=== PATIENT | female | born 1960 | race Hispanic/Latino ===

== ENCOUNTER 2018-11-01 07:20 | Observation (INO) | payer BC, OTHER ==
--- NOTE | 2018-11-01 07:36 | ED PDOC ---
Arrival/HPI - General Time Seen by Provider: 11/01/18 07:22 Historian: Patient - History of Present Illness Narrative History of Present Illness (Text): 11/01/18 07:32 A 58 year old female, with no significant past medical history, presents to the emergency department with a complaint of right upper abdominal pain. The patient states that the pain began yesterday, but worsened this morning. She reports the pain feels like gas pain. She states that she was seen at another institution where she had an abdominal ultrasound which showed multiple likely stones, no gall bladder wall thickening or pericholecystic fluid. The patient denies fevers, chills, headache, dizziness, chest pain, shortness of breath, dyspnea on exertion, cough, nausea, vomiting, diarrhea, back pain, neck pain, urinary/bowel changes, or any other complaint. PMD: Dr. Meyer Time/Duration: Other (Yesterday) Symptom Onset: Sudden Symptom Course: Unchanged Activities at Onset: Rest, Light Context: Home Past Medical History - Provider Review Nursing Documentation Reviewed: Yes Family/Social History - Physician Review Nursing Documentation Reviewed: Yes Family/Social History: No Known Family HX Allergies/Home Meds Allergies/Adverse Reactions: Allergies No Known Allergies Allergy (Verified 11/01/18 11:55) Home Medications: Home Meds Medication Instructions Recorded Confirmed No Known Home Med 11/01/18 11/01/18 Review of Systems - Physician Review All systems were reviewed & negative as marked: Yes - Review of Systems Constitutional: absent: Fevers Cardiovascular: absent: Chest Pain Physical Exam - Physical Exam Narrative Physical Exam (Text): Constitutional: No acute distress. Head: Normocephalic. Atraumatic. Eyes: PERRL. ENT: Moist mucous membranes. Neck: Supple. Cardiovascular: Regular rate. Chest: No tenderness. Respiratory: Clear to auscultation bilaterally. GI: Soft. Nondistended. Tenderness. No guarding. Back: No CVA tenderness. Musculoskeletal: No tenderness or swelling of extremities. Skin: No rash. Neurologic: Alert, no focal deficit. Vital Signs Reviewed: Yes Temperature: Afebrile Blood Pressure: Hypotensive Pulse: Bradycardic Respiratory Rate: Normal Appearance: Positive for: Well-Appearing, Non-Toxic, Comfortable Pain Distress: None Mental Status: Positive for: Alert and Oriented X 3 Medical Decision Making ED Course and Treatment: 11/01/18 07:38 Impression: A 58 year old female presents to the emergency department with a complaint of worsening right upper abdominal pain. Plan: -- Abdomen/Pelvis CT -- EKG -- Urinalysis -- Urine Culture -- Labs -- Toradol -- Reassess and disposition Prior Visits: Notes and results from previous visits were reviewed. Progress Notes: PROCEDURE: CT Abdomen and Pelvis with contrast Dictator : Jessica Mayes MD Report Date : 11/01/2018 09:44:38 IMPRESSION: Marked gastric wall thickening from the mid to distal stomach, may be related to gastritis. Correlate clinically. Cholelithiasis. Large prominent pelvic vasculature (left greater than right) may reflect pelvic congestion syndrome. 2.4 cm uterine hyperdense mass, likely fibroid. Patient continued to have pain despite IV treatment. Dr. Mcrae will take patient to endoscopy. Dr. Mullins consulted for lap slade should EGD be negative. - Lab Interpretations I have reviewed the lab results: Yes - EKG Interpretation Interpreted by ED Physician: Yes Type: 12 lead EKG - Scribe Statement The provider has reviewed the documentation as recorded by the Scribe Donna Zeng Provider Scribe Attestation: All medical record entries made by the Scribe were at my direction and personally dictated by me. I have reviewed the chart and agree that the record accurately reflects my personal performance of the history, physical exam, medical decision making, and the department course for this patient. I have also personally directed, reviewed, and agree with the discharge instructions and disposition. Disposition/Present on Arrival - Present on Arrival Any Indicators Present on Arrival: No - Disposition Have Diagnosis and Disposition been Completed?: Yes Diagnosis: Biliary colic, Cholelithiasis Disposition: HOSPITALIZED Disposition Time: 09:49 Patient Plan: Observation Condition: FAIR
[2018-11-01 08:21] LABS: BASO # 0.02 K/mm3 (0.0-2.0); BASO % 0.2 % (0.0-3.0); EOS % 0.4 % (1.5-5.0); HEMOGLOBIN 14.1 g/dL (12.0-16.0); LYMPH # 1.2 (1.2-3.4); LYMPH % 14.4 % (22.0-35.0); MEAN CELL VOLUME 90.1 fl (80.0-105.0); MEAN CORPUSCULAR HEMOGLOBIN 30.4 pg (25.0-35.0); MEAN CORPUSCULAR HGB CONC 33.7 g/dl (31.0-37.0); MONO # 0.6 (0.1-0.6); MONO % 7.4 % (1.0-6.0); RBC 4.64 10^6/uL (3.5-6.1); RED CELL DISTRIBUTION WIDTH 13.1 % (11.5-14.5); WHITE BLOOD COUNT 8.5 10^3/uL (4.5-11.0)
[2018-11-01 08:32] LABS: INR 1.05; PARTIAL THROMBOPLASTIN TIME 34.9 Seconds (26.9-38.3); PROTHROMBIN TIME 11.9 SECONDS (9.4-12.5)
[2018-11-01 08:33] LABS: ALB/GLOB RATIO 1.4 (1.1-1.8); ALBUMIN 4.3 g/dL (3.0-4.8); ALT/SGPT 23 U/L (7-56); AST/SGOT 29 U/L (14-36); BLOOD UREA NITROGEN 13 mg/dL (7-21); CALCIUM 9.7 mg/dL (8.4-10.5); GFR NON-AFRICAN AMERICAN > 60; LIPASE 145 U/L (23-300)
[2018-11-01] MEDS ORDERED: Iohexol 350 MG/100 ML VIAL ONE (08:43)
[2018-11-01 09:47] VITALS: BMI 22.6
--- NOTE | 2018-11-01 09:47 | CT ---
Date of service: 11/01/2018 PROCEDURE: CT Abdomen and Pelvis with contrast HISTORY: RUQ pain COMPARISON: None available TECHNIQUE: Contrast dose: 100 mL Omnipaque 350 IV Radiation dose: Total exam DLP = 305.92 mGy-cm. This CT exam was performed using one or more of the following dose reduction techniques: Automated exposure control, adjustment of the mA and/or kV according to patient size, and/or use of iterative reconstruction technique. FINDINGS: LOWER THORAX: No visible consolidation, pleural effusion, or pneumothorax. LIVER: Unremarkable. GALLBLADDER AND BILE DUCTS: Small calcified gallstones at the dependent portion of the gallbladder. PANCREAS: Unremarkable. SPLEEN: Unremarkable. ADRENALS: Unremarkable. No mass. KIDNEYS AND URETERS: The kidneys enhance symmetrically. No hydronephrosis or obstructing calculus identified. VASCULATURE: No aortic aneurysm. No atherosclerotic calcification or mural plaque present. BOWEL: Marked gastric wall thickening from the mid to distal stomach, may be related to gastritis. Stomach is nondistended. Lack of oral contrast limits evaluation for bowel pathology. Bowel loops appear within normal limits of caliber without evidence of obstruction. APPENDIX: The appendix appears within normal limits of caliber. No secondary signs of acute appendicitis. PERITONEUM: No significant free fluid. No definite free air. LYMPH NODES: No bulky adenopathy identified. BLADDER: Unremarkable. REPRODUCTIVE: The uterus is present. Large prominent pelvic vasculature (left greater than right) may reflect pelvic congestion syndrome. 2.4 cm uterine hyperdense mass, likely fibroid. BONES: Osseous demineralization. Degenerative changes. 9 mm L2 rounded lucency, possibly hemangioma. OTHER FINDINGS: None. IMPRESSION: Marked gastric wall thickening from the mid to distal stomach, may be related to gastritis. Correlate clinically. Cholelithiasis. Large prominent pelvic vasculature (left greater than right) may reflect pelvic congestion syndrome. 2.4 cm uterine hyperdense mass, likely fibroid.
[2018-11-01] MEDS ORDERED: Propofol 10 mg/ml Inj (20 ML) ONE (11:21)
[2018-11-01] MEDS ORDERED: Sodium Chloride 0.9% 1,000 ML IV SCH ×2 (11:45→14:00)
--- NOTE | 2018-11-01 11:45 | CARD ---
APPROVED REPORT Date of service: 11/01/2018 EKG Measurement Heart [id number] <Conclusion> Marked sinus bradycardia Low voltage QRS Abnormal ECG
[2018-11-01] MEDS ORDERED: HYDROmorphone 0.5 mg/0.5 ml ISec IVP PRN (13:52)
[2018-11-01 14:15] VITALS: O2SAT 97
--- NOTE | 2018-11-01 14:15 | CP.PCM.CON ---
History of Present Illness - History of Present Illness History of Present Illness: SURGERY CONSULT NOTE FOR DR. BARRON Reason: Cholelithiasis 58F presents to the hospital for abdominal pain. Patient states the pain started two days ago. She went to an urgent care first where she was told she had gallstones but requested to go home. Patient states pain did not improve and became excruciating so she came to the hospital. Patient states pain was mid epigastric in region. She denies any other symptoms. She denies nausea, vomiting, fevers, chills, constipation or dairrhea. Patient states the pain is much improved and states it got better after being given pepcid and protonix. PMH: denies PSH: *1 Social: denies tobacco use, denies illicit drug use, admits to social alcohol use, one drink per week Allergies: NKDA Past Patient History - Past Social History Smoking Status: Never Smoked - HEMATOLOGICAL/ONCOLOGICAL Hx Blood Transfusions: No Hx Blood Transfusion Reaction: No - PSYCHIATRIC Hx Substance Use: No - SURGICAL HISTORY Hx Surgeries: No - ANESTHESIA Hx Anesthesia Reactions: No Hx Malignant Hyperthermia: No Meds Allergies/Adverse Reactions: Allergies Allergy/AdvReac Type Severity Reaction Status Date / Time No Known Allergies Allergy Verified 11/01/18 11:55 - Medications Medications: Current Medications Hydromorphone HCl (Dilaudid) 0.5 mg IVP Q4H PRN PRN Reason: Pain, severe (8-10) Sodium Chloride (Sodium Chloride 0.9%) 1,000 mls @ 125 mls/hr IV .Q8H [facility] Ondansetron HCl (Zofran Inj) 4 mg IVP Q6H PRN PRN Reason: Nausea/Vomiting Pantoprazole Sodium (Protonix Inj) 40 mg IVP DAILY [facility] Physical Exam - Constitutional Appears: Non-toxic, No Acute Distress - Eye Exam Eye Exam: EOMI, PERRL - ENT Exam ENT Exam: Mucous Membranes Moist - Respiratory Exam Respiratory Exam: Clear to Auscultation Bilateral, NORMAL BREATHING PATTERN - Cardiovascular Exam Cardiovascular Exam: REGULAR RHYTHM, +S1, +S2 - GI/Abdominal Exam GI & Abdominal Exam: Soft, Tenderness. absent: Distended, Firm, Guarding, Rebound, Rigid - Extremities Exam Extremities exam: Negative for: pedal edema, tenderness - Neurological Exam Neurological exam: Alert, Oriented x3 - Psychiatric Exam Psychiatric exam: Normal Affect, Normal Mood - Skin Skin Exam: Dry, Intact, Normal Color, Warm Results - Vital Signs Recent Vital Signs: Last Vital Signs Temp 98 F 11/01/18 12:10 Pulse 73 11/01/18 12:10 Resp 18 11/01/18 12:10 BP 106/51 L 11/01/18 12:10 Pulse Ox 98 11/01/18 12:10 - Labs Result Diagrams: 11/01/18 08:05 11/01/18 08:05 Labs: Laboratory Results - last 24 hr 11/01/18 11/01/18 11/01/18 08:05 08:05 08:05 WBC 8.5 RBC 4.64 Hgb 14.1 Hct 41.8 MCV 90.1 MCH 30.4 MCHC 33.7 RDW 13.1 Plt Count 187 MPV 12.0 H Neut % (Auto) 77.6 H Lymph % (Auto) 14.4 L [place] % (Auto) 7.4 H Eos % (Auto) 0.4 L Baso % (Auto) 0.2 Lymph # (Auto) 1.2 Sur[place] # (Auto) 0.6 Eos # (Auto) 0.0 Baso # (Auto) 0.02 Absolute Neuts (auto) 6.57 H PT 11.9 INR 1.05 APTT 34.9 Sodium Potassium Chloride Carbon Dioxide Anion Gap BUN Creatinine Est GFR ( Amer) Est GFR (Non-Af Amer) Random Glucose Calcium Total Bilirubin AST ALT Alkaline Phosphatase Total Protein Albumin Globulin Albumin/Globulin Ratio Lipase Blood Type O NEGATIVE Blood Type Confirm Antibody Screen Negative BBK History Checked No verified bt 11/01/18 11/01/18 08:05 08:49 WBC RBC Hgb Hct MCV MCH MCHC RDW Plt Count MPV Neut % (Auto) Lymph % (Auto) Surry % (Auto) Eos % (Auto) Baso % (Auto) Lymph # (Auto) [place] # (Auto) Eos # (Auto) Baso # (Auto) Absolute Neuts (auto) PT INR APTT Sodium 141 Potassium 3.8 Chloride 104 Carbon Dioxide 27 Anion Gap 13 BUN 13 Creatinine 0.7 Est GFR ( Amer) > 60 Est GFR (Non-Af Amer) > 60 Random Glucose 110 Calcium 9.7 Total Bilirubin 0.6 AST 29 ALT 23 Alkaline Phosphatase 85 Total Protein 7.4 Albumin 4.3 Globulin 3.1 Albumin/Globulin Ratio 1.4 Lipase 145 Blood Type Blood Type Confirm O NEGATIVE Antibody Screen BBK History Checked Assessment & Plan - Assessment and Plan (Free Text) Assessment: 58F with abdominal pain, likely 2/2 to gastric/duodenal ulcers EGD 11/01: gastric/duodenal ulcers CT: thickening of gastric wall/cholelithiasis US: cholelithiasis, normal wall, normal CBD, no pericholecystic fluid Plan: - NPO, Advance diet as tolerated - Await EGD biopsy - Pain control - Monitor pain with PPIs - PPIs Further recs will discuss with Dr. Shashank Tolbert, PGY3
--- NOTE | 2018-11-01 14:30 | CP.PCM.CON ---
<Lm Arthur - Last Filed: 11/01/18 19:01> History of Present Illness - History of Present Illness History of Present Illness: Lm Arthur Internal Medicine Resident- Consult Note on Behalf of Dr. Mcrae Subjective: CC: Abdominal pain HPI: Patient is a 58 year old female with a past medical history of chronic back pain who was sent in from work for evaluation and treatment of abdominal pain which began when her cat jumped onto her. States pain originates and remains localized to the right upper quadrant. Characterizes the pain has being dull in nature at baseline but becomes sharp when exacerbated by PO intake. Abdominal pain is associated with nausea and multiple bouts of nonbloody nonbilious emesis which have resolved. Patient denies diarrhea, constipation, bright red blood per rectum, black stools. Admits to having appetite and tolerating diet. Further denies fever, chills, chest pain, SOB. 12 point ROS negative except as indicated in HPI Past medical history: chronic back pain Past surgical history: c- section x 1 Social history: social ETOH use, denies tobacco use, and denies illicit drug use Family history: Noncontributory Allergies: Denies Medications: as per [facility] Physical Examination: - Constitutional Appears: NAD - Head Exam Head Exam: NORMOCEPHALIC - Eye Exam Eye Exam: EOMI. absent: Scleral icterus - ENT Exam ENT Exam: Mucous Membranes Moist - Neck Exam Neck exam: Positive for: Normal Inspection - Respiratory Exam Respiratory Exam: CTA bilaterally absent: Rales, Rhonchi, Wheezes - Cardiovascular Exam Cardiovascular Exam: +S1, +S2 - GI/Abdominal Exam GI & Abdominal Exam: Normal Bowel Sounds, Soft. absent: Distended, Tenderness - Extremities Exam Additional comments: no clubbing, no cyanosis, no edema - Neurological Exam Neurological exam: Alert,awake, oriented x 3,responds to verbal stimuli, follows commands, and moves extremities past midline - Skin Skin Exam: Warm, dry, intact Assessment and Plan: Patient is a 58 year old female with no past medical history who was sent in from work for evaluation and treatment of abdominal pain. Abdominal Pain- Nonbleeding gastric ulcers/duodenal ulcers Chronic back pain 11/01/2018 EGD: nonbleeding gastric ulcers/duodenal ulcers with clean ulcer base 11/01/2018 CT Abdomen and Pelvis with contrast- Marked gastric wall thickening from the mid to distal stomach, may be related to gastritis. Cholelithiasis. Large prominent pelvic vasculature (left greater than right) may reflect pelvic congestion syndrome. 2.4 cm uterine hyperdense mass, likely fibroid. 11/01/2018 US: cholelithiasis, normal wall, normal CBD, no pericholecystic fluid - avoid NSAIDss - clear liquid diet, advance to softs as tolerated - protonix 40mg IV q12 - carafate 1gram PO QID - zofran prn - c/w IVF NS@ 125cc/hr Patient seen, case discussed with, and plan approved by attending physician, Dr. Mcrae. Past Patient History - Past Social History Smoking Status: Never Smoked - HEMATOLOGICAL/ONCOLOGICAL Hx Blood Transfusions: No Hx Blood Transfusion Reaction: No - PSYCHIATRIC Hx Substance Use: No - SURGICAL HISTORY Hx Surgeries: No - ANESTHESIA Hx Anesthesia Reactions: No Hx Malignant Hyperthermia: No Meds Allergies/Adverse Reactions: Allergies Allergy/AdvReac Type Severity Reaction Status Date / Time No Known Allergies Allergy Verified 11/01/18 11:55 - Medications Medications: Current Medications Hydromorphone HCl (Dilaudid) 0.5 mg IVP Q4H PRN PRN Reason: Pain, severe (8-10) Sodium Chloride (Sodium Chloride 0.9%) 1,000 mls @ 125 mls/hr IV .Q8H [facility] Ondansetron HCl (Zofran Inj) 4 mg IVP Q6H PRN PRN Reason: Nausea/Vomiting Pantoprazole Sodium (Protonix Inj) 40 mg IVP DAILY [facility] Results - Vital Signs Recent Vital Signs: Last Vital Signs Temp 98 F 11/01/18 12:10 Pulse 73 11/01/18 12:10 Resp 18 11/01/18 12:10 BP 106/51 L 11/01/18 12:10 Pulse Ox 98 11/01/18 12:10 - Labs Result Diagrams: 11/01/18 08:05 11/01/18 08:05 Labs: Laboratory Results - last 24 hr 11/01/18 11/01/18 11/01/18 08:05 08:05 08:05 WBC 8.5 RBC 4.64 Hgb 14.1 Hct 41.8 MCV 90.1 MCH 30.4 MCHC 33.7 RDW 13.1 Plt Count 187 MPV 12.0 H Neut % (Auto) 77.6 H Lymph % (Auto) 14.4 L Cannon % (Auto) 7.4 H Eos % (Auto) 0.4 L Baso % (Auto) 0.2 Lymph # (Auto) 1.2 Cannon # (Auto) 0.6 Eos # (Auto) 0.0 Baso # (Auto) 0.02 Absolute Neuts (auto) 6.57 H PT 11.9 INR 1.05 APTT 34.9 Sodium Potassium Chloride Carbon Dioxide Anion Gap BUN Creatinine Est GFR ( Amer) Est GFR (Non-Af Amer) Random Glucose Calcium Total Bilirubin AST ALT Alkaline Phosphatase Total Protein Albumin Globulin Albumin/Globulin Ratio Lipase Blood Type O NEGATIVE Blood Type Confirm Antibody Screen Negative BBK History Checked No verified bt 11/01/18 11/01/18 08:05 08:49 WBC RBC Hgb Hct MCV MCH MCHC RDW Plt Count MPV Neut % (Auto) Lymph % (Auto) Cannon % (Auto) Eos % (Auto) Baso % (Auto) Lymph # (Auto) Cannon # (Auto) Eos # (Auto) Baso # (Auto) Absolute Neuts (auto) PT INR APTT Sodium 141 Potassium 3.8 Chloride 104 Carbon Dioxide 27 Anion Gap 13 BUN 13 Creatinine 0.7 Est GFR ( Amer) > 60 Est GFR (Non-Af Amer) > 60 Random Glucose 110 Calcium 9.7 Total Bilirubin 0.6 AST 29 ALT 23 Alkaline Phosphatase 85 Total Protein 7.4 Albumin 4.3 Globulin 3.1 Albumin/Globulin Ratio 1.4 Lipase 145 Blood Type Blood Type Confirm O NEGATIVE Antibody Screen BBK History Checked <Clementina,Kovil V - Last Filed: 11/02/18 01:33> Meds - Medications Medications: Current Medications Hydromorphone HCl (Dilaudid) 0.5 mg IVP Q4H PRN PRN Reason: Pain, severe (8-10) Sodium Chloride (Sodium Chloride 0.9%) 1,000 mls @ 125 mls/hr IV .Q8H [facility] Last Admin: 11/01/18 15:30 Dose: 125 mls/hr Ondansetron HCl (Zofran Inj) 4 mg IVP Q6H PRN PRN Reason: Nausea/Vomiting Pantoprazole Sodium (Protonix Inj) 40 mg IVP Q12 [facility] Sucralfate (Carafate Oral Susp) 1 gm PO QID [facility] Last Admin: 11/01/18 22:16 Dose: 1 gm Results - Vital Signs Recent Vital Signs: Last Vital Signs Temp 98.3 F 11/01/18 22:37 Pulse 59 L 11/01/18 22:37 Resp 18 11/01/18 22:37 BP 116/76 11/01/18 22:37 Pulse Ox 97 11/01/18 22:37 - Labs Result Diagrams: 11/01/18 08:05 11/01/18 08:05 Labs: Laboratory Results - last 24 hr 11/01/18 11/01/18 11/01/18 08:05 08:05 08:05 WBC 8.5 RBC 4.64 Hgb 14.1 Hct 41.8 MCV 90.1 MCH 30.4 MCHC 33.7 RDW 13.1 Plt Count 187 MPV 12.0 H Neut % (Auto) 77.6 H Lymph % (Auto) 14.4 L Cannon % (Auto) 7.4 H Eos % (Auto) 0.4 L Baso % (Auto) 0.2 Lymph # (Auto) 1.2 Cannon # (Auto) 0.6 Eos # (Auto) 0.0 Baso # (Auto) 0.02 Absolute Neuts (auto) 6.57 H PT 11.9 INR 1.05 APTT 34.9 Sodium Potassium Chloride Carbon Dioxide Anion Gap BUN Creatinine Est GFR ( Amer) Est GFR (Non-Af Amer) Random Glucose Calcium Total Bilirubin AST ALT Alkaline Phosphatase Total Protein Albumin Globulin Albumin/Globulin Ratio Lipase Blood Type O NEGATIVE Blood Type Confirm Antibody Screen Negative BBK History Checked No verified bt 11/01/18 11/01/18 08:05 08:49 WBC RBC Hgb Hct MCV MCH MCHC RDW Plt Count MPV Neut % (Auto) Lymph % (Auto) Cannon % (Auto) Eos % (Auto) Baso % (Auto) Lymph # (Auto) Cannon # (Auto) Eos # (Auto) Baso # (Auto) Absolute Neuts (auto) PT INR APTT Sodium 141 Potassium 3.8 Chloride 104 Carbon Dioxide 27 Anion Gap 13 BUN 13 Creatinine 0.7 Est GFR ( Amer) > 60 Est GFR (Non-Af Amer) > 60 Random Glucose 110 Calcium 9.7 Total Bilirubin 0.6 AST 29 ALT 23 Alkaline Phosphatase 85 Total Protein 7.4 Albumin 4.3 Globulin 3.1 Albumin/Globulin Ratio 1.4 Lipase 145 Blood Type Blood Type Confirm O NEGATIVE Antibody Screen BBK History Checked Attending/Attestation - Attestation I have personally seen and examined this patient.: Yes I have fully participated in the care of the patient.: Yes I have reviewed all pertinent clinical information: Yes Notes (Text): This patient was seen and evaluated along with the medical detailist. Is an addendum to the GI progress report dictated by the resident. This patient was seen in the [facility] emergency room in [place] yesterday. Ultrasound scan was done blood work was done told that they were okay except gallstones. Patient sent home. She experience more pain and hence came back to the [place] emergency room. Patient gives history of taking nonsteroidal anti-inflammatory drugs for the past few weeks for back pain. On examination patient did have tenderness in the epigastric and right upper quadrant area. No rebound or guarding. Clinically more suggestive of peptic ulcer disease rule out cholecystitis. CT findings were reviewed. There is no gallbladder wall thickening or pericholecystic fluid. CBD normal. Plan upper GI endoscopy to further evaluate. Risk benefits alternatives explained informed consent was obtained ASA risk category 2 and empiric score 2 11/02/18 01:29
--- NOTE | 2018-11-01 14:39 | US ---
HISTORY: abd pain COMPARISON: CT abdomen and pelvis with IV contrast performed 11/01/18. TECHNIQUE: Sonographic evaluation of the abdomen. FINDINGS: Examination limited by bowel gas. LIVER: Measures 17.7 cm in sagittal dimension and appears within normal limits of size, shape, and echotexture. No focal hepatic mass identified. The main portal vein appears patent with normal directional flow. No intrahepatic bile duct dilatation. GALLBLADDER: Gallstones. No gallbladder wall thickening. Negative sonographic Welch's sign as assessed by the communication center operator. COMMON BILE DUCT: Measures 6 mm. PANCREAS: Not well visualized. RIGHT KIDNEY: Measures 10.1 x 4.2 x 3.9 cm. No obstructing calculus or hydronephrosis identified. LEFT KIDNEY: Measures 10.0 x 5.3 x 4.9 cm. No obstructing calculus or hydronephrosis identified. SPLEEN: Measures approximately 10.9 cm. AORTA: Limited views appear unremarkable. IVC: Limited views appear unremarkable. OTHER FINDINGS: None. IMPRESSION: Examination limited by bowel gas. Cholelithiasis.
[2018-11-01] MEDS ORDERED: Pneumococcal 23-Valent Vaccine IM ONE (15:24)
[2018-11-01] MEDS: Sucralfate 1 gm/10 ml Oral Susp UD PO SCH ×2 (18:02→22:16)
--- NOTE | 2018-11-01 22:31 | HP ---
DATE OF EXAM: 11/01/2018 CHIEF COMPLAINT AND HISTORY OF PRESENT ILLNESS: This is a 58-year-old female who coming into the hospital complaining of right upper quadrant pain. She has gone to the [facility] ER yesterday and had an ultrasound that showed cholelithiasis. She has been taking NSAIDs for her chronic back pain that was worse over the last few days. She was having nausea. She says nothing made the pain better or worse. Her pain was high, but she was not able to quantify. She reported that she feels like she has gas. She denies any diarrhea. No chest pain. No weakness in the arms or the legs. No dysuria or frequency. All other review of symptoms are within normal limits except what was mentioned. She is not taking any antibiotics recently. She denies any black stools or bleeding from her rectum. REVIEW OF SYSTEMS: All other review of symptoms are within normal limits except what was mentioned. PAST MEDICAL HISTORY: Chronic back pain. PAST SURGICAL HISTORY: . 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 She drinks socially. She denies smoking and drug use. FAMILY HISTORY: Noncontributory. ALLERGIES: NO KNOWN DRUG ALLERGIES. MEDICATIONS: [id number] NSAIDs. PHYSICAL EXAMINATION: VITAL SIGNS: Temperature is 98, pulse is 55, blood pressure is 103/58, respirations 18, and O2 saturation is 98%. Height is 5 feet 6 inches, weight is 140 pounds, and BMI is 23.6. GENERAL: The patient is lying in bed, comfortable, and in no acute distress. HEENT: Atraumatic and normocephalic. Anicteric sclerae. Moist mucosa. [place] conjunctivae. No oral lesions. NECK: No JVD, anterior and posterior adenopathy, thyromegaly, or bruits. CARDIOVASCULAR: S1 and S2 regular. No murmurs, rubs or gallops. LUNGS: Clear to auscultation bilaterally. No wheezes, rales, or rhonchi. ABDOMEN: Bowel sounds are positive. Soft. Right upper quadrant tenderness, but no rebound or guarding. Welch sign is negative. EXTREMITIES: No cyanosis, clubbing, or edema. NEUROLOGIC: No facial asymmetry. Tongue is midline. No uvula deviation. Power is 5/5 in upper extremities and lower extremities. Sensation intact in upper extremities and lower extremities. PSYCHIATRIC: She is awake, alert and oriented x3. No anxiety or depression. She has normal affect. GENITOURINARY: No CVA tenderness. VASCULAR: 2+ pulses in the carotid pulses and pedal pulses. SKIN: No erythema or nodules. SPINE: Shows normal curvature. LABORATORY DATA: White count of 8.5, hemoglobin is 14.1, and platelet count is 187. INR is 1.05. Chemistry shows a sodium of 141, creatinine is 0.7, AST and ALT is 29 and 23, albumin is 4.3. There is a CT of the abdomen and pelvis that was done that showed a 2.4 cm uterus. There is a hyperdense mass, likely a fibroid. There is a large prominent pelvic vasculature, marked gastric wall thickening. The EKG done shows low voltage QRS, sinus bradycardia at 48, QTc is 393. Ultrasound of the abdomen shows cholelithiasis. ASSESSMENT: 1. Peptic ulcer disease secondary to nonsteroidal antiinflammatory drug use. 2. Cholelithiasis. 3. Uterine fibroid. 4. Chronic back pain. PLAN: Patient had an endoscopy done by Dr. Mcrae. She was found to have ulcers that were multiple. I did speak to Dr. Mcrae prior to the case as well as after the case. I spoke with the patient's primary doctor, Dr. Meyer to give him an update. The patient is getting sucralfate as well for her ulcer. She is on Zosyn for nausea. She was given Toradol that helped her symptoms. She is on a liquid diet. She is currently comfortable. Ever Jules MD
[2018-11-02 07:44] VITALS: BP 108/67; PULSE 77; RESP 20; TEMP 98.6
--- NOTE | 2018-11-02 08:19 | CP.PCM.PN ---
Subjective - Date & Time of Evaluation Date of Evaluation: 11/02/18 Time of Evaluation: 07:10 - Subjective Subjective: General Surgery Progress note Pt seen and examined. No issues overnight. Pain 07/04 now. States she heard she could go home today. Discussed follow up plans for Dr. Encarnacion. No new complaints. Objective - Vital Signs/Intake and Output Vital Signs (last 24 hours): Temp Pulse Resp BP Pulse Ox 98.6 F 77 20 108/67 97 11/02/18 06:00 11/02/18 06:00 11/02/18 06:00 11/02/18 06:00 11/02/18 06:00 Intake and Output: 11/02/18 11/02/18 06:59 18:59 Intake Total 0 Balance 0 - Medications Medications: Current Medications Hydromorphone HCl (Dilaudid) 0.5 mg IVP Q4H PRN PRN Reason: Pain, severe (8-10) Sodium Chloride (Sodium Chloride 0.9%) 1,000 mls @ 125 mls/hr IV .Q8H [facility] Last Admin: 11/01/18 15:30 Dose: 125 mls/hr Ondansetron HCl (Zofran Inj) 4 mg IVP Q6H PRN PRN Reason: Nausea/Vomiting Pantoprazole Sodium (Protonix Inj) 40 mg IVP Q12 [facility] Sucralfate (Carafate Oral Susp) 1 gm PO QID [facility] Last Admin: 11/01/18 22:16 Dose: 1 gm - Labs Labs: 11/01/18 08:05 11/01/18 08:05 PT 11.9 SECONDS (9.4-12.5) 11/01/18 08:05 INR 1.05 11/01/18 08:05 APTT 34.9 Seconds (26.9-38.3) 11/01/18 08:05 - Constitutional Appears: Non-toxic, No Acute Distress - Head Exam Head Exam: ATRAUMATIC, NORMOCEPHALIC - Eye Exam Eye Exam: EOMI. absent: Scleral icterus - ENT Exam ENT Exam: Mucous Membranes Moist Additional comments: trachea midline - Respiratory Exam Respiratory Exam: NORMAL BREATHING PATTERN. absent: Respiratory Distress - GI/Abdominal Exam GI & Abdominal Exam: Soft. absent: Distended, Firm, Guarding, Rigid, Tenderness, Rebound - Extremities Exam Extremities Exam: absent: Calf Tenderness, Pedal Edema, Tenderness - Back Exam Back Exam: absent: CVA tenderness (L), CVA tenderness (R) - Neurological Exam Neurological Exam: Alert, Awake, Oriented x3 - Psychiatric Exam Psychiatric exam: Normal Affect, Normal Mood - Skin Skin Exam: Dry, Warm Assessment and Plan - Assessment and Plan (Free Text) Assessment: 58F with gastric and duodenal ulcers, with gallstones Plan: - Advance diet as tolerated per GI - Follow up biopsy - PPIs - Follow up as outpatient in 4-6 weeks to discuss possible removal of gallbladder D/W Dr. Shashank [place] PGY4
--- NOTE | 2018-11-03 01:35 | DS ---
HISTORY OF PRESENT ILLNESS: This is a 58-year-old female, who was admitted to the hospital because of abdominal pain. She was found to have multiple peptic ulcers. The patient was given sucralfate and Protonix. She had improvement of her symptoms. The patient feels well this morning, is going to be discharged. She has no complaints of any headaches or dizziness. No nausea. No vomiting. PHYSICAL EXAMINATION: VITAL SIGNS: Temperature is 98.6, pulse is 77, blood pressure 108/67, and respirations 20. GENERAL: The patient is lying in bed, flat, comfortable. HEENT: No oral lesion. Anicteric sclerae. Moist mucosa. NECK: No JVD, adenopathy, or thyromegaly. CARDIOVASCULAR: S1 and S2, regular. No murmurs, rubs, or gallops. LUNGS: Clear to auscultation bilaterally. No wheeze, rales, or rhonchi. ABDOMEN: Bowel sounds are positive, soft, nontender and nondistended. EXTREMITIES: No cyanosis, clubbing, or edema. ASSESSMENT: 1. Peptic ulcer disease secondary to nonsteroidal antiinflammatory drug. 2. Cholelithiasis. 3. Uterine fibroid. 4. Chronic back pain. PLAN: The patient is on sucralfate; this will be continued. She is on IV fluids. I will discontinue the patient's IV fluids. The patient is going to be discharged home today. Condition is stable. Activity is increased as tolerated. Follow up with the primary care doctor in 1 to 2 weeks, Dr. Meyer. The patient had prescription given to her for sucralfate and for Protonix. Ever Jules MD
== END 2018-11-02 10:22 | disposition home or self-care (01) ==
LOC: ED 07:20 → ERH 10:33 → 5RNO 12:47
PROVIDERS: ADMIT Internal Medicine Nephrology; ATTEND Internal Medicine Nephrology
DX: K25.9 Gastric ulcer, unspecified as acute or chronic, without hemorrhage or perforation (principal); K26.9 Duodenal ulcer, unspecified as acute or chronic, without hemorrhage or perforation; T39.395A Adverse effect of other nonsteroidal anti-inflammatory drugs [NSAID], initial encounter; K80.20 Calculus of gallbladder without cholecystitis without obstruction; D25.9 Leiomyoma of uterus, unspecified; G89.29 Other chronic pain; M54.9 Dorsalgia, unspecified; K29.50 Unspecified chronic gastritis without bleeding
CPT/HCPCS: 43239; 74177; 76700; 80053; 83690; 85025; 85610; 85730; 86850; 86900; 88305; 88342; 93005; 96374; 96375; 96376; 99283; C9113; G0378; J1885; J2704; J7030; J7040; Q9967